=== PATIENT | female | born 1960 | race Caucasian/White ===

== ENCOUNTER 2023-12-14 10:30 | Day surgery (SDC) | payer OTHER ==
[~2023-12-14] VITALS: Ht 162.6 cm; Wt 58.1 kg
[2023-12-14] MEDS ORDERED: MIDAZOLAM 2 MG/2 ML VIAL ONE (12:37)
[2023-12-14] MEDS ORDERED: fentaNYL citrate 0.05 MG/ML VIAL ONE (12:37)
[2023-12-14] MEDS: fentaNYL citrate 0.05 MG/ML VIAL IVP ONE (13:16)
[2023-12-14] MEDS: LIDOCAINE 2% 100 MG/5 ML UJET TP ONE (13:28)
== END 2023-12-14 14:20 | disposition home or self-care (01) ==
LOC: MDS 10:30 → MMU 10:32 → MDS 14:20
PROVIDERS: ATTEND Internal Medicine Gastroenterology
DX: Z12.11 Encounter for screening for malignant neoplasm of colon (principal); E78.5 Hyperlipidemia, unspecified; Z82.49 Family history of ischemic heart disease and other diseases of the circulatory system; Z98.891 History of uterine scar from previous surgery
CPT/HCPCS: 45378; J2250; J3010